=== PATIENT | male | born 1940 | race Caucasian/White ===

== ENCOUNTER 2019-01-26 11:55 | Day surgery (SDC) | payer OTHER, BC, MEDICARE ==
[2019-01-26] MEDS: MIDAZOLAM 1 MG/ML 2 ML INJ IV (18:17)
[2019-01-26] MEDS ORDERED: LABETALOL HCL 20MG INJ IV (18:30)
[2019-01-26] MEDS ORDERED: ALBUTEROL 0.083% (NEB) 2.5 MG/3 ML AMP HHN (18:30)
[2019-01-26] MEDS ORDERED: FENTAnyl 50 MCG/ML VIAL IV ×2 (18:30)
[2019-01-26] MEDS ORDERED: hydrALAzine 20 MG INJ IV (18:30)
[2019-01-26] MEDS ORDERED: EPHEDrine 25 MG/5 ML SYG IV (18:30)
[2019-01-26] MEDS ORDERED: DIPHENHYDRAMINE 50 MG INJ IV (18:30)
== END 2019-01-26 18:40 | disposition other institution (70) ==
LOC: GIL 11:55 → SDS 11:55 → GIL 18:40
DX: K94.23 Gastrostomy malfunction (principal); Y84.8 Other medical procedures as the cause of abnormal reaction of the patient, or of later complication, without mention of misadventure at the time of the procedure; Y82.8 Other medical devices associated with adverse incidents; I10 Essential (primary) hypertension; E11.9 Type 2 diabetes mellitus without complications; Z79.4 Long term (current) use of insulin
CPT/HCPCS: 49446; 94002